=== PATIENT | male | born 1960 | race Two or more races ===

== ENCOUNTER 2018-07-18 12:07 | Inpatient (IN) | payer OTHER ==
[~2018-07-18] VITALS: Ht 172.7 cm; Wt 84.3 kg
[~2018-07-18 12:07] MED LIST: METF-370 PO; NOR10T PO
[2018-07-18] MEDS ORDERED: IODIXANOL 320MG/ML 100ML BTL IV ONE ×2 (12:48→13:11)
[2018-07-18] MEDS ORDERED: LIDOCAINE 2%HCL (LOCAL ANESTH.) INJ 20ML MDV ONE (12:48)
[2018-07-18] MEDS ORDERED: fentaNYL CITRATE 100 MCG/2 ML VL ONE (12:51)
[2018-07-18] MEDS ORDERED: SODIUM CHL 0.9% 50 ML ONE (12:51)
[2018-07-18] MEDS ORDERED: MIDAZOLAM HCL 1MG/1ML-2 ML VIAL ONE (12:51)
[2018-07-18] MEDS ORDERED: ANGIOMAX 250 MG VIAL IV ONE (12:51)
[2018-07-18] MEDS ORDERED: ATROPINE SULF 1 MG/10ml SYR ONE (12:56)
[2018-07-18] MEDS ORDERED: EPINEPHrine HCL 1 MG/10 ML SYRG ONE (12:56)
[2018-07-18 13:03] LABS: Basophils # (auto) 0 uL; Basophils % (auto) 0.5 % (0.0-2.0); Eosinophils # (auto) 0.2 uL; Eosinophils % (auto) 3.5 % (0.0-7.0); Hematocrit 44.7 % (41.0-53.0); Hemoglobin 14.5 g/dL (13.5-17.5); Lymphocytes # (auto) 1.4 uL; Mean Corpuscular Hemoglobin 27.4 pg (28.0-32.0); Mean Corpuscular Hgb Conc. 32.5 g/dL (32.0-36.0); Mean Corpuscular Volume 84.2 fL (80.0-100.0); Monocytes # (auto) 0.9 uL; Monocytes % (auto) 12.8 % (0.0-12.0); Neutrophils # (auto) 4.2 uL; Neutrophils % (auto) 62.2 % (37.0-80.0); Platelet Count (auto) 271 10^3/uL (140-450); Red Cell Distribution Width 14.2 % (11.8-14.3); White Blood Cell 6.8 10^3/uL (4.4-10.8)
[2018-07-18 13:23] LABS: INR 0.93 (0.9-1.15); Partial Thromboplastin Time 28.5 sec (23.78-33.04)
[2018-07-18 13:25] LABS: Alanine Aminotransferase 25 U/L (16-61); Albumin 3.8 g/dL (3.4-5.0); Alkaline Phosphatase 92 U/L (45-117); Anion Gap 1 (5-15); Aspartate Aminotransferase 18 U/L (15-37); Bilirubin, Total 0.4 mg/dL (0.2-1.0); Blood Urea Nitrogen 16 mg/dL (7-18); Calcium 9.2 mg/dL (8.5-10.1); Carbon Dioxide 31 mmol/L (21-32); Chloride 105 mmol/L (98-107); GFR African American 127 mL/min; GFR Non-African American 105 mL/min; Glucose 103 mg/dL (74-106); Potassium 4.6 mmol/L (3.5-5.1); Sodium 137 mmol/L (136-145); Total Protein 7.8 g/dL (6.4-8.2)
[2018-07-18] MEDS ORDERED: ACETAMINOPHEN 500 MG TAB PO PRN (14:00)
[2018-07-18] MEDS ORDERED: ZOLPIDEM TARTRATE 5 MG TAB PO PRN (14:00)
[2018-07-18] MEDS ORDERED: HYDROcodone-ACET 5/325MG TAB PO PRN (14:00)
[2018-07-18] MEDS ORDERED: ONDANSETRON HCL 4 MG/2 ML VIAL IV PRN (14:00)
[2018-07-18] MEDS ORDERED: DEXTROSE (50%) 50ML SYRG IV PRN (14:00)
[2018-07-18] MEDS ORDERED: NITROGLYCERIN 0.4 MG SL TAB SL PRN (14:00)
[2018-07-18] MEDS ORDERED: MORPHINE SULFATE 4 MG/ML SYR/VIAL IV PRN (14:00)
[2018-07-18] MEDS: METOPROLOL TARTRATE 25 MG TAB PO SCH (14:15)
[2018-07-18] MEDS: SOD CHL 0.45% 1,000 ML IV SCH (14:36)
[2018-07-18] MEDS: HYDROcodone-ACET 10/325MG TAB PO PRN ×2 (15:00→23:30)
[2018-07-18] MEDS: ACCU-CHEK COMFORT CURVE STRIP VI SCH ×2 (17:00→21:36)
[2018-07-18] MEDS: InsuLIN REG 1unit/0.01ml Soln (100units/ml) SC SCH ×2 (17:00→21:36)
[2018-07-18 17:39] VITALS: BP 134/77
[2018-07-18 20:00] VITALS: BP 107/67
[2018-07-18] MEDS ORDERED: GABA300C10 PO (20:34)
[2018-07-18] MEDS ORDERED: LISI-275 PO (20:34)
[2018-07-18] MEDS ORDERED: SIMV-8 PO (20:34)
[2018-07-18 22:00] VITALS: BP 107/67
[2018-07-19] MEDS: SOD CHL 0.45% 1,000 ML IV SCH (03:20)
[2018-07-19 05:03] VITALS: BP 119/74
[2018-07-19] MEDS: InsuLIN REG 1unit/0.01ml Soln (100units/ml) SC SCH ×2 (06:29→11:30)
[2018-07-19] MEDS: ACCU-CHEK COMFORT CURVE STRIP VI SCH ×2 (06:30→11:30)
[2018-07-19 06:51] LABS: Alanine Aminotransferase 22 U/L (16-61); Albumin 3.5 g/dL (3.4-5.0); Alkaline Phosphatase 80 U/L (45-117); Anion Gap 5 (5-15); Aspartate Aminotransferase 15 U/L (15-37); BUN/Creatinine Ratio 14.9; Bilirubin, Total 0.5 mg/dL (0.2-1.0); Blood Urea Nitrogen 10 mg/dL (7-18); Calcium 8.7 mg/dL (8.5-10.1); Carbon Dioxide 28 mmol/L (21-32); Chloride 107 mmol/L (98-107); Cholesterol 142 mg/dL (< 200); GFR African American 156 mL/min; GFR Non-African American 129 mL/min; Glucose 84 mg/dL (74-106); HDL Cholesterol 34 mg/dL (40-59); LDL Cholesterol 93 mg/dL (< 100); Sodium 140 mmol/L (136-145); Total Protein 7.1 g/dL (6.4-8.2); Triglycerides 203 mg/dL (< 150)
[2018-07-19 08:15] LABS: Basophils # (auto) 0 uL; Basophils % (auto) 0.3 % (0.0-2.0); Eosinophils # (auto) 0.2 uL; Eosinophils % (auto) 2.9 % (0.0-7.0); Hematocrit 43.2 % (41.0-53.0); Hemoglobin 14.1 g/dL (13.5-17.5); Lymphocytes # (auto) 1.6 uL; Lymphocytes % (auto) 24.3 % (10.0-50.0); Mean Corpuscular Hemoglobin 27.8 pg (28.0-32.0); Mean Corpuscular Hgb Conc. 32.7 g/dL (32.0-36.0); Mean Corpuscular Volume 85.1 fL (80.0-100.0); Monocytes # (auto) 0.8 uL; Monocytes % (auto) 11.9 % (0.0-12.0); Neutrophils % (auto) 60.6 % (37.0-80.0); Nucleated Red Blood Cells % 0.1 %; Platelet Count (auto) 240 10^3/uL (140-450); Red Blood Cells 5.08 10^6/uL (4.5-5.90); Red Cell Distribution Width 14.1 % (11.8-14.3); White Blood Cell 6.6 10^3/uL (4.4-10.8)
[2018-07-19] MEDS: HYDROcodone-ACET 10/325MG TAB PO PRN (08:49)
[2018-07-19 09:00] VITALS: BP 95/57
[2018-07-19] MEDS: METOPROLOL TARTRATE 25 MG TAB PO SCH (09:50)
[2018-07-19] MEDS ORDERED: ASPirin-EC 81 mg tab PO SCH (10:00)
[2018-07-19] MEDS ORDERED: GABAPENTIN 300 MG CAP PO SCH (10:00)
[2018-07-19 12:29] VITALS: BP 108/69
[2018-07-19 12:48] VITALS: BP 100/71
[2018-07-19] MEDS ORDERED: ATORVASTATIN 20 MG TAB PO SCH (22:00)
== END 2018-07-19 16:35 | disposition home or self-care (01) | DRG 282 ==
LOC: EDBD 12:07 → ER 12:12 → CATH 1 12:55 → TELE-WESTW 12:56
PROVIDERS: ADMIT Internal Medicine; ATTEND Internal Medicine
PROC: B2151ZZ Fluoroscopy of Left Heart using Low Osmolar Contrast (ICD-10-PCS; principal; 2018-07-18)
PROC: 4A023N7 Measurement of Cardiac Sampling and Pressure, Left Heart, Percutaneous Approach (ICD-10-PCS; 2018-07-18)
PROC: B2111ZZ Fluoroscopy of Multiple Coronary Arteries using Low Osmolar Contrast (ICD-10-PCS; 2018-07-18)
PROC: 4A033BC Measurement of Arterial Pressure, Coronary, Percutaneous Approach (ICD-10-PCS; 2018-07-18)
DX: I21.02 ST elevation (STEMI) myocardial infarction involving left anterior descending coronary artery (principal); I10 Essential (primary) hypertension; E78.5 Hyperlipidemia, unspecified; E11.9 Type 2 diabetes mellitus without complications; M54.5 Low back pain; I25.10 Atherosclerotic heart disease of native coronary artery without angina pectoris; G89.29 Other chronic pain; Z90.49 Acquired absence of other specified parts of digestive tract; Z82.49 Family history of ischemic heart disease and other diseases of the circulatory system
CPT/HCPCS: 36415; 71045; 80053; 80061; 82962; 83036; 83735; 83880; 84443; 84484; 85025; 85379; 85610; 85730; 93005; 93306; 93458; 99152; A6257; C1887; J2250; Q9967

== ENCOUNTER 2020-08-20 00:04 | Emergency (ER) | payer OTHER ==
[~2020-08-20] VITALS: Ht 175.3 cm; Wt 79.4 kg
[~2020-08-20 00:04] MED LIST changes: +GABA300C10 PO; +LISI-275 PO; +SIMV-8 PO
[2020-08-20 03:14] LABS: Basophils # (auto) 0 10 ^3/uL (0-0.2); Basophils % (auto) 0.6 % (0.0-2.0); Eosinophils # (auto) 0.1 10 ^3/uL (0-0.8); Eosinophils % (auto) 1.8 % (0.0-7.0); Hematocrit 42.3 % (41.0-53.0); Lymphocytes # (auto) 1.3 10 ^3/uL (0.4-5.4); Lymphocytes % (auto) 16.2 % (10.0-50.0); Mean Corpuscular Hemoglobin 27.8 pg (28.0-32.0); Mean Corpuscular Hgb Conc. 33.2 g/dL (32.0-36.0); Mean Corpuscular Volume 83.9 fL (80.0-100.0); Monocytes # (auto) 0.8 10 ^3/uL (0-1.3); Monocytes % (auto) 9.8 % (0.0-12.0); Neutrophils # (auto) 5.7 10 ^3/uL (1.6-8.6); Neutrophils % (auto) 71.6 % (37.0-80.0); Platelet Count (auto) 255 10^3/uL (140-450); Red Blood Cells 5.05 10^6/uL (4.5-5.90); Red Cell Distribution Width 13.5 % (11.8-14.3); White Blood Cell 7.9 10^3/uL (4.4-10.8)
[2020-08-20 03:30] LABS: INR 0.97 (0.9-1.15)
[2020-08-20 03:34] LABS: Calcium 8.6 mg/dL (8.5-10.1); Potassium 3.8 mmol/L (3.5-5.1)
[2020-08-20 03:36] LABS: BUN/Creatinine Ratio 29.4
[2020-08-20 05:23] VITALS: BP 114/65
== END 2020-08-20 05:52 | disposition home or self-care (01) ==
LOC: ER 00:04
DX: R04.0 Epistaxis (principal); E11.9 Type 2 diabetes mellitus without complications; E78.5 Hyperlipidemia, unspecified
CPT/HCPCS: 36415; 80048; 85025; 85610

== ENCOUNTER 2020-08-21 18:37 | Emergency (ER) | payer OTHER ==
[~2020-08-21] VITALS: Ht 175.3 cm; Wt 83.9 kg
[2020-08-21 23:35] VITALS: BP 112/63
== END 2020-08-22 00:04 | disposition home or self-care (01) ==
LOC: ER 18:37
DX: R04.0 Epistaxis (principal); E11.9 Type 2 diabetes mellitus without complications; E78.5 Hyperlipidemia, unspecified; R51.9 Headache, unspecified
CPT/HCPCS: 70450; 70486

== ENCOUNTER 2021-12-04 02:19 | Emergency (ER) | payer OTHER ==
[~2021-12-04] VITALS: Ht 180.3 cm; Wt 81.6 kg
[2021-12-04 04:39] VITALS: BP 140/65
== END 2021-12-04 04:42 | disposition home or self-care (01) ==
LOC: ER 02:27
DX: R04.0 Epistaxis (principal); E11.9 Type 2 diabetes mellitus without complications; E78.5 Hyperlipidemia, unspecified; Z90.49 Acquired absence of other specified parts of digestive tract; Z79.899 Other long term (current) drug therapy